=== PATIENT | female | born 1995 ===

== ENCOUNTER 2017-04-19 02:49 | Emergency (ER) | payer SELFPAY ==
[2017-04-19 03:01] VITALS: O2SAT 100
[2017-04-19 03:02] VITALS: BMI 25.6
--- NOTE | 2017-04-19 03:49 | ED PDOC ---
HPI:Nausea, Vomiting, Diarrhea Time Seen by Provider: 04/19/17 02:54 Chief Complaint (Nursing): Headache Chief Complaint (Provider): Nausea History Per: Patient History/Exam Limitations: no limitations Onset/Duration Of Symptoms: Days (x6) Current Symptoms Are (Timing): Still Present Severity: Mild Associated Symptoms: Other (Headache). denies: Vomiting, Diarrhea Additional Complaint(s): 21 year old female presents to ED with complaints of nausea and headaches x6 days and has no past medical history. (-) vomiting, diarrhea, or vaginal bleeding. no abdominal pain. Notes that Tylenol has not mitigated her symptoms. PCP: None Abnormal Vaginal Bleeding: No Past Medical History Reviewed: Historical Data, Nursing Documentation, Vital Signs Vital Signs: Last Vital Signs Temp 98.8 F 04/19/17 03:28 Pulse 73 04/19/17 03:28 Resp 18 04/19/17 03:28 BP 114/75 04/19/17 03:28 Pulse Ox 100 04/19/17 03:28 - Medical History PMH: No Chronic Diseases - Surgical History Surgical History: No Surg Hx - Family History Family History: States: Unknown Family Hx - Social History Current smoker - smoking cessation education provided: No Ex-Smoker (has not smoked in the last 12 months): No Alcohol: None Drugs: Denies - Home Medications Home Medications: Ambulatory Orders Medication Instructions Recorded Albuterol HFA [Ventolin HFA 90 1 puff IH Q4 PRN #1 unit 08/28/14 mcg/actuation (8 g)] Azithromycin [Zithromax Z-Andrey] 250 mg PO DAILY #1 packet 08/28/14 Nitrofurantoin Macrocrystals 100 mg PO BID #14 cap 06/11/15 [Macrobid] Tobramycin 1 drop TOP ASDIR #1 bottle 10/15/15 Multimineral/Multivitamin 1 tab PO DAILY #0 tab 01/05/16 [Therapeutic-M Tab] - Allergies Allergies/Adverse Reactions: Allergies Allergy/AdvReac Type Severity Reaction Status Date / Time No Known Allergies Allergy Verified 04/19/17 03:26 Review of Systems ROS Statement: Except As Marked, All Systems Reviewed And Found Negative Gastrointestinal: Positive for: Nausea, Abdominal Pain (mild). Negative for: Vomiting, Diarrhea Genitourinary Female: Negative for: Vaginal Bleeding Neurological: Positive for: Headache Physical Exam - Reviewed Nursing Documentation Reviewed: Yes Vital Signs Reviewed: Yes - Physical Exam Appears: Positive for: Non-toxic, No Acute Distress Head Exam: Positive for: ATRAUMATIC, NORMAL INSPECTION, NORMOCEPHALIC Skin: Positive for: Normal Color, Warm, Dry Eye Exam: Positive for: EOMI, Normal appearance, PERRL ENT: Positive for: Normal ENT Inspection Neck: Positive for: Normal, Painless ROM Cardiovascular/Chest: Positive for: Regular Rate, Rhythm. Negative for: Murmur Respiratory: Positive for: Normal Breath Sounds. Negative for: Respiratory Distress Gastrointestinal/Abdominal: Positive for: Soft. Negative for: Tenderness Back: Positive for: Normal Inspection Extremity: Positive for: Normal ROM. Negative for: Deformity Neurologic/Psych: Positive for: Alert, Oriented. Negative for: Motor/Sensory Deficits - Laboratory Results Result Diagrams: 04/19/17 04:00 04/19/17 04:00 - ECG O2 Sat by Pulse Oximetry: 100 (RA) Pulse Ox Interpretation: Normal Medical Decision Making Medical Decision Makin Initial impression: positive Initial plan: * BETA HCG QUANT * Labs * Urine C&S * UA 0616 Patient denies pain currently. Informed patient that she is . pt denies vaginal bleeding. Aware of lab results. Will follow up with ROUTE CLERK in 1-2 days. instructed to take vitamins. Patient is stable for discharge home. Scribe Attestation: Documented by Leena Davis acting as a scribe for Pipe España MD. Scribe Attestation: All medical record entries made by the Scribe were at my direction and personally dictated by me. I have reviewed the chart and agree that the record accurately reflects my personal performance of the history, physical exam, medical decision making, and the department course for this patient. I have also personally directed, reviewed, and agree with the discharge instructions and disposition. Disposition - Clinical Impression Clinical Impression: Headache, Nausea, - Patient ED Disposition Is Patient to be Admitted: No Counseled Patient/Family Regarding: Studies Performed, Diagnosis, Need For Followup - Disposition Referrals: [facility] [Outside] [facility] [Outside] Disposition: Routine/Home Disposition Time: 06:00 Condition: IMPROVED Additional Instructions: follow up with final tester for further care you need to take vitamins return to the ED with any worsening or concerning symptoms Instructions: (ED) Forms: [facility] (Lithuanian) Print Language: WELSH
[2017-04-19 04:03] LABS: BASO % 0.4 % (0.0-2.0); EOS # 0.2 K/uL (0.0-0.7); EOS % 2.3 % (0.0-4.0); HEMATOCRIT 38.4 % (34.0-47.0); LYMPH # 3.2 K/uL (1.0-4.3); LYMPH % 36.7 % (20.0-40.0); MEAN CELL VOLUME 86.9 fl (81.0-99.0); MEAN CORPUSCULAR HEMOGLOBIN 30.5 pg (27.0-31.0); MEAN CORPUSCULAR HGB CONC 35.1 g/dL (33.0-37.0); MEAN PLATELET VOLUME 8.5 fl (7.2-11.7); MONO # 0.5 K/uL (0.0-0.8); MONO % 5.7 % (0.0-10.0); NEUT # 4.7 K/uL (1.8-7.0); NEUT % 54.9 % (50.0-75.0); NRBC % 0.1 % (0.0-0.0); RED CELL DISTRIBUTION WIDTH 13.7 % (11.5-14.5); WHITE BLOOD COUNT 8.6 K/uL (4.8-10.8)
[2017-04-19 04:28] LABS: RBC URINE 2 /hpf (0-3); URINE BACTERIA RARE (<OCC); URINE BILIRUBIN NEGATIVE (NEGATIVE); URINE BLOOD SMALL (NEGATIVE); URINE COLOR YELLOW (YELLOW); URINE GLUCOSE (UA) NEG (Normal); URINE KETONE NEGATIVE (NEGATIVE); URINE LEUKOCYTE ESTERASE TRACE Leu/uL (Negative); URINE PROTEIN NEGATIVE (NEGATIVE); URINE UROBILINOGEN 0.2-1.0 mg/dL (0.2-1.0)
[2017-04-19 04:34] LABS: ALB/GLOB RATIO 1.3 (1.0-2.1); ALKALINE PHOSPHATASE 64 U/L (38-126); ALT/SGPT 29 U/L (9-52); AST/SGOT 27 U/L (14-36); BILIRUBIN,TOTAL 0.3 mg/dl (0.2-1.3); BLOOD UREA NITROGEN 7 mg/dl (7-17); CALCIUM 8.9 mg/dL (8.4-10.2); CARBON DIOXIDE 19 mmol/L (22-30); CHLORIDE 109 mmol/L (98-107); GFR AFRICAN-AMERICAN > 60; GLUCOSE,RANDOM 90 mg/dL (65-105); POTASSIUM 3.6 MMOL/L (3.6-5.0); SODIUM 138 mmol/l (132-148); TOTAL PROTEIN 6.9 G/DL (6.3-8.2)
[2017-04-19 06:24] VITALS: BP 133/71; PULSE 78; RESP 15; TEMP 97.8
== END 2017-04-19 06:36 | disposition home or self-care (01) ==
LOC: H.ER 02:49
DX: R51 Headache (principal); Z33.1 Pregnant state, incidental

== ENCOUNTER 2017-08-16 02:53 | Emergency (ER) | payer SELFPAY ==
[2017-08-16 04:34] LABS: SQUAMOUS EPITHIAL 5 /hpf (0-5); URINE BACTERIA OCC (<OCC); URINE BILIRUBIN NEGATIVE (NEGATIVE); URINE BLOOD NEGATIVE (NEGATIVE); URINE CLARITY CLOUDY (Clear); URINE COLOR YELLOW (YELLOW); URINE GLUCOSE (UA) NEG (Normal); URINE LEUKOCYTE ESTERASE NEG Leu/uL (Negative); URINE NITRATE NEGATIVE (NEGATIVE); URINE PROTEIN NEGATIVE (NEGATIVE); URINE UROBILINOGEN 0.2-1.0 mg/dL (0.2-1.0)
--- NOTE | 2017-08-16 07:09 | OBHP ---
Datetime: 08/16/2017 03:47 IP Adm Impression: , intrauterine ; No Active Labor IP Admit Plan: Observation/Evaluation; Discharge home Admit Comment, IP Provider: 22 yo F IUP 25.5 weeks based on LMP 02/17/17 c/o abdominal pain s kaylin last Wednesday, 2-10/02, diffuse, radiated to back, no related with any event, denies ctx, vb, lof, +FM. No falls, headache, urinary symptoms, nausea, vomiting, fever, no diarrhea or constipation. Pt s aid that is following [facility] in [facility] but no records were found in [facility]. PObH: NVD x2, SAB x1 GynH: none PMH: none FMH: none PSH: none Meds: PNV NKDA SH: no etoh, tobacco, drugs. VS wnl Ford: 160/mod variability, 15x15/cat I A/P: 22 yo F IUP 25.5 weeks with abd pain, no active labor. /maternal monitoring UA pos for high urine bacteria discharge home with Keflex PO x 7 days Plenty of fluids PTL precautions given. Case discussed with Dr Rosas. Mari PGY 1. Pt discussed with the resident and agree with the above. Pelvic Type - PN: Adequate Extremities - PN: Normal Abdomen - PN: Normal Back - PN: Normal Breast - PN: Normal Lungs - PN: Normal Heart - PN: Normal Thyroid - PN: Normal Neurologic - PN: Normal HEENT - PN: Normal General - PN: Normal FHR - Baseline A Provider: 160 Contraction Comments Provider: quiet Vital Signs Provider: Reviewed IP Chief Complaint: Maternal discomfort NICHD Variability Prov Fetus A: Moderate 6-25bpm NICHD Accel Fetus A IP Provider: 15X15 FHR Category Provider Fetus A: Category I Genitourinary Exam: Normal DTRs - PN: Normal
[2017-08-16 09:27] VITALS: BP 95/47; PULSE 83; RESP 18; TEMP 97.8; O2SAT 99
== END 2017-08-16 04:50 | disposition home or self-care (01) ==
LOC: H.EROB2 02:53
DX: O26.92 Pregnancy related conditions, unspecified, second trimester (principal); R10.2 Pelvic and perineal pain; Z3A.25 25 weeks gestation of pregnancy; M54.9 Dorsalgia, unspecified

== ENCOUNTER 2018-12-15 01:24 | Emergency (ER) | payer SELFPAY ==
[2018-12-15 01:24] VITALS: BMI 25.6
[2018-12-15 01:54] VITALS: O2SAT 99
[2018-12-15] MEDS ORDERED: Sodium Chloride 0.9% 1,000 ML IV STA (02:40)
--- NOTE | 2018-12-15 02:42 | ED PDOC ---
HPI: Abdomen Time Seen by Provider: 12/15/18 02:29 Chief Complaint (Nursing): GI Problem Chief Complaint (Provider): abdominal pain History Per: Patient History/Exam Limitations: no limitations Onset/Duration Of Symptoms: Days (2) Current Symptoms Are (Timing): Still Present Location Of Pain/Discomfort: RUQ, Epigastric, LUQ Quality Of Discomfort: Cramping Associated Symptoms: Other (headache) Additional Complaint(s): 23 y/o female presents for evaluation of upper abdominal pain x 2 days. A ssociated headache, nausea, 2 episodes of diarrhea. Denies fever, vomiting, chest pain, shortness of breath, palpitations, urinary symptoms. Past Medical History Reviewed: Historical Data, Nursing Documentation, Vital Signs Vital Signs: Last Vital Signs Temp 98.6 F 12/15/18 01:51 Pulse 97 H 12/15/18 01:51 Resp 16 12/15/18 01:51 BP 123/78 12/15/18 01:51 Pulse Ox 99 12/15/18 01:51 Primary Care Provider: FAMILY PROVIDER,NO - Medical History PMH: No Chronic Diseases - Surgical History Surgical History: No Surg Hx - Family History Family History: States: Unknown Family Hx - Living Arrangements Living Arrangements: With Family - Home Medications Home Medications: Ambulatory Orders Medication Instructions Recorded Albuterol HFA [Ventolin HFA 90 1 puff IH Q4 PRN #1 unit 08/28/14 mcg/actuation (8 g)] Azithromycin [Zithromax Z-Andrey] 250 mg PO DAILY #1 packet 08/28/14 Nitrofurantoin Macrocrystals 100 mg PO BID #14 cap 06/11/15 [Macrobid] Tobramycin 1 drop TOP ASDIR #1 bottle 10/15/15 Multimineral/Multivitamin 1 tab PO DAILY #0 tab 01/05/16 [Therapeutic-M Tab] Dicyclomine [Bentyl] 20 mg PO TID PRN #21 tab 12/15/18 Famotidine [Pepcid] 20 mg PO BID #14 tab 12/15/18 - Allergies Allergies/Adverse Reactions: Allergies Allergy/AdvReac Type Severity Reaction Status Date / Time No Known Allergies Allergy Verified 04/19/17 03:26 Review of Systems ROS Statement: Except As Marked, All Systems Reviewed And Found Negative Gastrointestinal: Positive for: Nausea, Abdominal Pain, Diarrhea Neurological: Positive for: Headache Physical Exam - Reviewed Nursing Documentation Reviewed: Yes Vital Signs Reviewed: Yes - Physical Exam Appears: Positive for: Well, Non-toxic, No Acute Distress (sleeping) Head Exam: Positive for: ATRAUMATIC, NORMAL INSPECTION, NORMOCEPHALIC Skin: Positive for: Normal Color Eye Exam: Positive for: Normal appearance ENT: Positive for: Normal ENT Inspection Cardiovascular/Chest: Positive for: Regular Rate, Rhythm Respiratory: Positive for: Normal Breath Sounds Gastrointestinal/Abdominal: Positive for: Bowel Sounds, Soft, Tenderness (ruq, epigastric, luq, bilateral flank. Neg Jacobson's) Back: Positive for: Normal Inspection Extremity: Positive for: Normal ROM Neurological/Psych: Positive for: Awake, Alert, Oriented (x3) - Laboratory Results Result Diagrams: 12/15/18 02:56 12/15/18 02:56 - ECG O2 Sat by Pulse Oximetry: 99 - Progress ED Course And Treament: -upreg -udip -cbc -cmp -lipase -urine c&s -IV pepcid -PO Bentyl Patient with blood in urine; states she has IUD and does not get menstraul periods; will order CT renal protocol CT SCAN OF THE ABDOMEN AND PELVIS WITHOUT ORAL OR IV CONTRAST. CLINICAL INDICATION: Abdominal pain and hematuria. TECHNIQUE: Axial and reformatted sagittal and coronal images of the abdomen pelvis obtained without IV contrast administration. COMPARISON: None. FINDINGS: The visualized lung bases are unremarkable. Normal unenhanced liver. Normal gallbladder and extrahepatic biliary system. Normal unenhanced spleen. Normal pancreas. Normal bilateral adrenal glands. Normal size of the right kidney. There is no right renal mass. There are no right renal calculi. There is no right hydronephrosis. Normal visualized right ureter. Normal size of the left kidney. There is no left renal mass. There are no left renal calculi. There is no left hydronephrosis. Normal visualized left ureter. Normal visualized stomach. Normal small intestine. Normal colon. The appendix is visualized and appears normal. There is no demonstrated peritoneal fluid. Normal abdominal aorta. Normal inferior vena cava. Normal retroperitoneum. Mild diffuse thickening of the urinary bladder. Unremarkable intrauterine de vice. There is no pelvic mass lesion or lymphadenopathy. There is no pelvic fluid. Normal abdominal wall. Normal osseous structures. IMPRESSION: Mild diffuse thickening of the bladder. Underdistention versus mild cystitis Patient states she is feeling better on re-eval Patient educated on findings, discharged with rx Bentyl, Pepcid Advised follow up PMD within 2-3 days Tylenol PRN headache Return precautions given Disposition - Clinical Impression Clinical Impression: Gastroenteritis - Patient ED Disposition Is Patient to be Admitted: No Counseled Patient/Family Regarding: Studies Performed, Diagnosis, Need For Followup, Rx Given - Disposition Referrals: [facility] [Outside] Disposition: Routine/Home Disposition Time: 04:58 Condition: IMPROVED Prescriptions: Dicyclomine [Bentyl] 20 mg PO TID PRN #21 tab PRN Reason: Pain, Mild (1-3) Famotidine [Pepcid] 20 mg PO BID #14 tab Instructions: Viral Gastroenteritis, Adult (DC) Print Language: MONGOLIAN
[2018-12-15 03:12] LABS: ALB/GLOB RATIO 1.3 (1.0-2.1); ALBUMIN 4.2 g/dL (3.5-5.0); ALT/SGPT 55 U/L (9-52); AST/SGOT 38 U/L (14-36); BASO % 0.3 % (0.0-2.0); BLOOD UREA NITROGEN 9 mg/dl (7-17); CALCIUM 8.1 mg/dL (8.4-10.2); EOS % 0.5 % (0.0-4.0); GFR NON-AFRICAN AMERICAN > 60; HEMOGLOBIN 15.1 g/dL (12.0-16.0); LIPASE 25 U/L (23-300); LYMPH # 0.7 K/uL (1.0-4.3); LYMPH % 13.6 % (20.0-40.0); MEAN CELL VOLUME 89.2 fl (81.0-99.0); MEAN CORPUSCULAR HEMOGLOBIN 31.2 pg (27.0-31.0); MEAN PLATELET VOLUME 8.7 fl (7.2-11.7); MONO # 0.2 K/uL (0.0-0.8); MONO % 4.2 % (0.0-10.0); NEUT # 4.4 K/uL (1.8-7.0); NEUT % 81.4 % (50.0-75.0); NRBC % 0.1 % (0.0-0.0); RBC 4.83 Mil/uL (3.80-5.20); RED CELL DISTRIBUTION WIDTH 14.1 % (11.5-14.5); WHITE BLOOD COUNT 5.4 K/uL (4.8-10.8)
[2018-12-15 05:48] VITALS: BP 117/86; PULSE 87; RESP 18; TEMP 98.2
--- NOTE | 2018-12-15 11:27 | CT ---
Date of service: 12/15/2018 PROCEDURE: CT Abdomen and Pelvis without intravenous contrast HISTORY: abd pain, hematuria COMPARISON: Not available TECHNIQUE: Without contrast.. Contrast dose: 0 Radiation dose: Total exam DLP = 301.25 mGy-cm. This CT exam was performed using one or more of the following dose reduction techniques: Automated exposure control, adjustment of the mA and/or kV according to patient size, and/or use of iterative reconstruction technique. FINDINGS: LOWER THORAX: Unremarkable. LIVER: Unremarkable. No gross lesion or ductal dilatation. GALLBLADDER AND BILE DUCTS: Unremarkable. PANCREAS: Unremarkable. No gross lesion or ductal dilatation. SPLEEN: Unremarkable. ADRENALS: Unremarkable. No mass. KIDNEYS AND URETERS: Unremarkable. No hydronephrosis. No solid mass. VASCULATURE: Unremarkable. No aortic aneurysm. No aortic atherosclerotic calcification or mural plaque present. BOWEL: Unremarkable. No obstruction. No gross mural thickening. No evidence of diverticulosis or diverticulitis. APPENDIX: Unremarkable. Normal appendix. PERITONEUM: Unremarkable. No free fluid. No free air. LYMPH NODES: Unremarkable. No enlarged lymph nodes. BLADDER: Suboptimally distended. No gross abnormality. REPRODUCTIVE: Anteverted. Intrauterine device noted. BONES: No acute fracture. OTHER FINDINGS: None. IMPRESSION: No acute abnormality. Intrauterine device noted. No evidence of urinary calculus or urinary tract obstruction. Otherwise unremarkable. The preliminary findings for this examination were reported by [facility] at 4:52 a.m. on 12/15/2018. There is concurrence of this report with the preliminary findings.
== END 2018-12-15 05:47 | disposition home or self-care (01) ==
LOC: H.ER 01:24
DX: K52.9 Noninfective gastroenteritis and colitis, unspecified (principal)
CPT/HCPCS: 74176; 80053; 81025; 83690; 85025; 87086; 96374; 99283; J7030